=== PATIENT | male | born 1965 | race Caucasian/White ===

== ENCOUNTER 2024-04-28 05:12 | Observation (INO) | payer MEDICARE ==
[2024-04-28] MEDS ORDERED: DUONEB 0.5-3 MG/3 ml Neb IH ONE (05:22)
--- NOTE | 2024-04-28 05:26 | ERPHSYRPT ---
- History of Present Illness Source: patient Exam Limitations: no limitations Hx Tetanus, Diphtheria Vaccination/Date Given: No Hx Influenza Vaccination/Date Given: No Hx Pneumococcal Vaccination/Date Given: No <ABHISHEK EUGENE - Last Filed: 04/28/24 06:55> <ALEXANDER RUANO - Last Filed: 04/28/24 07:46> - History of Present Illness Time Seen by Provider: 04/28/24 05:16 Physician History: 58 years old male with history of hypertension, diabetes mellitus getting over the flu presented in the ER with complaints of increasing shortness of breath cough productive of yellow-green sputum copious in amount with wheezing all over. Reports subjective feeling of fever and chills. Has been taking Tylenol/ibuprofen with no significant relief. Shortness of breath gets worse with minimal exertion. (ABHISHEK EUGENE) Allergies/Adverse Reactions: NSAIDS (Non-Steroidal Anti-Inflamma Allergy (Severe, Verified 11/04/11 15:27) acetaminophen [From Vicodin] Allergy (Intermediate, Verified 11/04/11 15:27) amitriptyline [Amitriptyline] Allergy (Intermediate, Verified 11/04/11 15:27) hydrocodone bitartrate [From Vicodin] Allergy (Intermediate, Verified 11/04/11 15:27) Penicillins Allergy (Unknown, Verified 11/04/11 15:27) Home Medications: AMITRIPTYLINE HCL 50 mg Tab [AMITRIPTYLINE HCL 50 mg Tablet] 100 mg PO HS 04/28/24 [History] Glipizide [Glipizide ER] 5 mg PO BID 04/28/24 [History] HydrALAzine HCL 25 MG TAB [Apresoline 25 MG TABLET] 25 mg PO TID 04/28/24 [History] Metoprolol Succinate 100 mg [Toprol Xl 100 MG] 100 mg PO DAILY 04/28/24 [History] Pioglitazone HCl 45 mg PO DAILY 04/28/24 [History] Rosuvastatin Calcium 5 mg PO HS 04/28/24 [History] Tizanidine HCl 4 mg PO HS 04/28/24 [History] - Review of Systems Constitutional: Fever, Chills, Fatigue Eyes: No Symptoms Ears, Nose, & Throat: No Symptoms Respiratory: Cough, Dyspnea, Dyspnea on Exertion (CANDELARIA), Wheezing Cardiac: No Symptoms Abdominal/Gastrointestinal: No Symptoms Genitourinary Symptoms: No Symptoms Musculoskeletal: No Symptoms Skin: No Symptoms Neurological: No Symptoms Psychological: No Symptoms Endocrine: No Symptoms Hematologic/Lymphatic: No Symptoms Immunological/Allergic: No Symptoms <ABHISHEK EUGENE - Last Filed: 04/28/24 06:55> - Past Medical History Musculoskeletal History: Other - Past Surgical History Musculoskeletal: Orthopedic Surgery - Social History Drug Use: none <ABHISHEK EUGENE - Last Filed: 04/28/24 06:55> - Physical Exam General Appearance: no apparent distress, alert Eye Exam: PERRL/EOMI Ears, Nose, Throat Exam: hearing grossly normal Neck Exam: normal inspection, non-tender, supple, full range of motion Respiratory Exam: diminished breath sounds, accessory muscle use, rhonchi, wheezing Cardiovascular/Chest Exam: normal heart sounds, tachycardia Abdominal/Gastrointestinal Exam: soft, normal bowel sounds, No tenderness Extremity Exam: non-tender, normal range of motion Neurologic Exam: alert, oriented x 3, cooperative Skin Exam: normal color SpO2 Interpretation: normal SpO2: 93 O2 Delivery: Room Air <ABHISHEK EUGENE - Last Filed: 04/28/24 06:55> - Nursing Vital Signs Nursing Vital Signs: Initial Vital Signs Temperature 97.9 F 04/28/24 05:13 Pulse Rate 135 H 04/28/24 05:13 Respiratory Rate 26 H 04/28/24 05:13 Blood Pressure 118/76 04/28/24 05:13 O2 Sat by Pulse Oximetry 92 L 04/28/24 05:13 Pain Scale Pain Intensity 3 - Course EKG Interpreted by Me: RATE (132), Sinus Rhythm, NORMAL AXIS, NORMAL INTERVALS, Non-specific ST Changes <ABHISHEK EUGENE - Last Filed: 04/28/24 06:55> - Radiology Exams Chest X-ray Interpretation: Interpreted by me (infiltrate) <ALEXANDER RUANO - Last Filed: 04/28/24 07:46> Ordered Tests: Active Orders 24 hr Category Date Time Status Intelligence Director STAT Care 04/28/24 05:18 Active EKG-ER Only STAT Care 04/28/24 05:17 Active Oxygen-ED Only Nasal Cannula 2 lpm Care 04/28/24 05:17 Active CHEST 1 VIEW (PORTABLE) Stat Exams 04/28/24 05:18 Taken BLOOD CULTURE Stat Lab 04/28/24 06:40 Received CBC W DIFF Stat Lab 04/28/24 05:17 Completed CMP Stat Lab 04/28/24 06:40 Completed Lactic Acid Stat Lab 04/28/24 05:17 Completed MAGNESIUM Stat Lab 04/28/24 06:40 Completed NT PRO BNPII Stat Lab 04/28/24 06:40 Completed TROPONIN Q4H Lab 04/28/24 06:40 Completed TROPONIN Q4H Lab 04/28/24 09:30 Ordered TROPONIN Q4H Lab 04/28/24 13:30 Ordered Respiratory Therapy Assessment DAILY RT 04/28/24 05:33 Active Transfer Order Routine Transfer 04/28/24 Ordered Medication Summary Generic Name Dose Route Start Last Admin Trade Name Freq PRN Reason Stop Dose Admin Magnesium Sulfate/Dextrose 100 mls @ 100 mls/hr 04/28/24 07:15 04/28/24 07:33 Magnesium 1 Gm / 100 Ml D5w IV 04/28/24 09:14 100 mls/hr Q1H DORINA Administration Levofloxacin/Dextrose 500 mg in 100 mls @ 100 mls/hr 04/28/24 07:15 04/28/24 07:22 Levofloxacin 500mg/100ml D5w IV 04/28/24 08:14 100 mls/hr STAT STA Administration Discontinued Medications Generic Name Dose Route Start Last Admin Trade Name Freq PRN Reason Stop Dose Admin Albuterol/Ipratropium 3 ml 04/28/24 05:17 04/28/24 05:30 Ipratropium/Albuterol Sulfate 3 Ml Ampul.Neb IH 04/28/24 05:18 3 ml STAT ONE Administration Albuterol/Ipratropium Confirm 04/28/24 05:22 Ipratropium/Albuterol Sulfate 3 Ml Ampul.Neb Administered 04/28/24 05:23 Dose 3 ml IH .STK-MED ONE Methylprednisolone Sodium 0 mg 04/28/24 05:17 04/28/24 05:35 Succinate 125 mg/ Sterile IV 04/28/24 05:18 125 mg Water 2 ml STAT ONE Administration Levofloxacin/Dextrose Confirm 04/28/24 07:20 Levofloxacin 500mg/100ml D5w Administered 04/28/24 07:21 Dose 500 mg in 100 mls @ ud IV .STK-MED ONE Methylprednisolone Sodium Succinate Confirm 04/28/24 05:34 Methylprednis Sod Succ 125 Mg/2 Ml Vial Administered 04/28/24 05:35 Dose 125 mg .ROUTE .STK-MED ONE Sterile Water Confirm 04/28/24 05:34 Water For Injection,Sterile 10 Ml Vial Administered 04/28/24 05:35 Dose 10 ml IJ .STK-MED ONE Lab/Rad Data: Laboratory Result Diagrams 04/28/24 05:17 04/28/24 06:40 Laboratory Results 04/28/24 04/28/24 04/28/24 Range/Units 06:40 06:40 05:17 WBC (4.23-9.07) x10^3/uL RBC (4.63-6.08) x10^6/uL Hgb (13.7-17.5) g/dL Hct (40.1-51.0) % MCV (79.0-92.2) fL MCH (25.7-32.2) pg MCHC (32.3-36.5) g/dL RDW (11.6-14.4) % Plt Count (163-337) x10^3/uL MPV (9.4-12.4) fL Gran % (34.0-67.9) % Immature Gran % (Auto) (0.001-0.429) % Nucleat RBC Rel Count (0.00-0.2) % Eos # (Auto) (0.04-0.54) x10^3/uL Immature Gran # (Auto) (0.001-0.031) x10^3u/L Absolute Lymphs (auto) (1.32-3.57) x10^3/uL Absolute Monos (auto) (0.30-0.82) x10^3/uL Absolute Nucleated RBC (0.00-0.012) x10^3u/L Lymphocytes % (21.8-53.1) % Monocytes % (5.3-12.2) % Eosinophils % (0.8-7.0) % Basophils % (0.2-1.2) % Absolute Granulocytes (1.78-5.38) x10^3/uL Basophils # (0.01-0.08) x10^3/uL Sodium 134 L (135-145) mmol/L Potassium 4.3 (3.5-5.1) mmol/L Chloride 98 (98-107) mmol/L Carbon Dioxide 23 (22-30) mmol/L Anion Gap 17.4 H (5-15) MEQ/L BUN 8 L (9-20) mg/dL Creatinine 0.81 (0.66-1.25) mg/dL Estimated GFR 100.9 ML/MIN Glucose 144 H (74-106) mg/dL Lactic Acid 1.7 (0.4-2.0) Calcium 8.6 (8.4-10.2) mg/dL Magnesium 1.3 L (1.6-2.3) mg/dL Total Bilirubin 0.60 (0.2-1.3) mg/dL AST 46 (17-59) U/L ALT 35 (0-50) U/L Alkaline Phosphatase 109 (38-126) U/L Troponin I < 0.012 (0.000-0.033) ng/mL NT-Pro-B Natriuret Pep 391 (<300) pg/mL Serum Total Protein 6.6 (6.3-8.2) g/dL Albumin 3.4 L (3.5-5.0) g/dL 04/28/24 Range/Units 05:17 WBC 8.6 (4.23-9.07) x10^3/uL RBC 4.28 L (4.63-6.08) x10^6/uL Hgb 12.7 L (13.7-17.5) g/dL Hct 38.3 L (40.1-51.0) % MCV 89.5 (79.0-92.2) fL MCH 29.7 (25.7-32.2) pg MCHC 33.2 (32.3-36.5) g/dL RDW 13.8 (11.6-14.4) % Plt Count 280 (163-337) x10^3/uL MPV 9.0 L (9.4-12.4) fL Gran % 74.6 H (34.0-67.9) % Immature Gran % (Auto) 0.9 H (0.001-0.429) % Nucleat RBC Rel Count 0.0 (0.00-0.2) % Eos # (Auto) 0.45 (0.04-0.54) x10^3/uL Immature Gran # (Auto) 0.08 H (0.001-0.031) x10^3u/L Absolute Lymphs (auto) 0.88 L (1.32-3.57) x10^3/uL Absolute Monos (auto) 0.74 (0.30-0.82) x10^3/uL Absolute Nucleated RBC 0.00 (0.00-0.012) x10^3u/L Lymphocytes % 10.2 L (21.8-53.1) % Monocytes % 8.6 (5.3-12.2) % Eosinophils % 5.2 (0.8-7.0) % Basophils % 0.5 (0.2-1.2) % Absolute Granulocytes 6.40 H (1.78-5.38) x10^3/uL Basophils # 0.04 (0.01-0.08) x10^3/uL Sodium (135-145) mmol/L Potassium (3.5-5.1) mmol/L Chloride (98-107) mmol/L Carbon Dioxide (22-30) mmol/L Anion Gap (5-15) MEQ/L BUN (9-20) mg/dL Creatinine (0.66-1.25) mg/dL Estimated GFR ML/MIN Glucose (74-106) mg/dL Lactic Acid (0.4-2.0) Calcium (8.4-10.2) mg/dL Magnesium (1.6-2.3) mg/dL Total Bilirubin (0.2-1.3) mg/dL AST (17-59) U/L ALT (0-50) U/L Alkaline Phosphatase (38-126) U/L Troponin I (0.000-0.033) ng/mL NT-Pro-B Natriuret Pep (<300) pg/mL Serum Total Protein (6.3-8.2) g/dL Albumin (3.5-5.0) g/dL - Progress Progress: improved Air Movement: fair Blood Culture(s) Obtained: Yes Counseled pt/family regarding: lab results, diagnosis, need for follow-up, rad results <ABHISHEK EUGENE - Last Filed: 04/28/24 06:55> <ALEXANDER RUANO - Last Filed: 04/28/24 07:46> - Progress Progress Note: 04/28/24 06:55 58-year-old is evaluated for increasing cough and difficulty breathing. Patient is tachypneic and tachycardic, mild distress, oxygen saturation in mid to upper 80s, placed on 2 L oxygen, given DuoNeb and Solu-Medrol, feeling better on reevaluation. EKG is sinus tach with no acute ST elevation Chest x-ray showed bilateral airspace opacities reviewed by me, official report is pending, Has normal lactate, rest of workup is pending, care is transferred to Dr. Ruano at end of my shift for reevaluation and final disposition. (ABHISHEK EUGENE) Patient endorsed to Dr. Ruano at approximately 7 AM. Patient reassessed he is resting comfortably. Oxygen nasal cannula in place. Patient normally does not require oxygen. Patient will be admitted for further evaluation of hypoxia tachycardia hypomagnesemia pneumonia and a productive cough. Plan of care discussed with patient. He agrees to admission at [facility] for further evaluation and treatment. Case discussed with hospitalist Dr. Shaw excepts admission to observation at 7:27 AM. Complexity of problem addressed is moderate acute complicated no critical care time. Complex of data reviewed and analyzed is extensive. Test ordered test reviewed results analyzed and correlated clinically with history and physical exam. Management discussed with hospitalist will except admission to observation. Risk of complication and or risk of morbidity/mortality of patient management is high. Patient requires hospitalization for further evaluation and treatment. Vital stable. Time spent to admit patient is approximately 15 minutes. Plan of care established for shared decision making. No social determinants of health present to impede follow-up. Portions of this note were created with voice recognition technology. There may be grammatical, spelling, punctuation or sound alike errors 04/28/24 07:44 (ALEXANDER RUANO) Medical Desision Making - Diagnostic Testing Diagnostic test were ordered, analyzed, and reviewed by me: Yes Radiological Interpretation: Interpreted by me, Reviewed by me <ABHISHEK EUGENE - Last Filed: 04/28/24 06:55> <ABHISHEK EUGENE - Last Filed: 04/28/24 06:55> - Departure Departure Disposition: Observation Critical Care Time: No <ALEXANDER RUANO - Last Filed: 04/28/24 07:46> - Departure Clinical Impression: Tachycardia, Hypoxia, Hypomagnesemia, Pneumonia, Productive cough, Influenza A Condition: Stable Referrals: RYAN BANKS [Primary Care Provider] - Follow up/PCP as directed
[2024-04-28] MEDS: DUONEB 0.5-3 MG/3 ml Neb IH ONE (05:30)
[2024-04-28] MEDS ORDERED: solu-MEDROL ONE (05:34)
[2024-04-28] MEDS ORDERED: Sterile H2O 10 ml IJ ONE (05:34)
[2024-04-28] MEDS: solu-MEDROL 125 MG, Sterile H2O 10 ml 2 ML IV ONE (05:35)
[2024-04-28 06:46] LABS: BASOPHIL % 0.5 % (0.2-1.2); Basophil (Absolute #) 0.04 x10^3/uL (0.01-0.08); Eosinophil % 5.2 % (0.8-7.0); Eosinophil (Absolute #) 0.45 x10^3/uL (0.04-0.54); Hematocrit 38.3 % (40.1-51.0); Hemoglobin 12.7 g/dL (13.7-17.5); IMMATURE GRAN # 0.08 x10^3u/L (0.001-0.031); IMMATURE GRAN % 0.9 % (0.001-0.429); Lymphocyte (Absolute #) 0.88 x10^3/uL (1.32-3.57); Lymphocytes % 10.2 % (21.8-53.1); Mean Cell Volume 89.5 fL (79.0-92.2); Mean Corpuscular Hemoglobin 29.7 pg (25.7-32.2); Mean Corpuscular Hgb Concent. 33.2 g/dL (32.3-36.5); Monocyte (Absolute #) 0.74 x10^3/uL (0.30-0.82); Monocytes % 8.6 % (5.3-12.2); Neutrophil % 74.6 % (34.0-67.9); Platelet Count 280 x10^3/uL (163-337); Red Blood Count 4.28 x10^6/uL (4.63-6.08); Red Cell Distribution Width 13.8 % (11.6-14.4); White Blood Count 8.6 x10^3/uL (4.23-9.07)
[2024-04-28 06:56] LABS: ALBUMIN 3.4 g/dL (3.5-5.0); ANION GAP 17.4 MEQ/L (5-15); BILIRUBIN,TOTAL 0.6 mg/dL (0.2-1.3); Calcium 8.6 mg/dL (8.4-10.2); Creatinine 1 0.81 mg/dL (0.66-1.25); EST GLOMERULAR FILTRATION RATE 100.9 ML/MIN; MAGNESIUM 1.3 mg/dL (1.6-2.3); Potassium 4.3 mmol/L (3.5-5.1); Total Protein 6.6 g/dL (6.3-8.2)
[2024-04-28 07:06] LABS: NT PRO BNPII 391 pg/mL (<300); TROPONIN < 0.012 ng/mL (0.000-0.033)
[2024-04-28] MEDS ORDERED: Levofloxacin 500MG/100ML D5W 500 MG/100 ML BAG IV ONE (07:20)
[2024-04-28] MEDS: Levofloxacin 500MG/100ML D5W 500 MG/100 ML BAG IV STA (07:22)
[2024-04-28] MEDS: Magnesium 1 Gm / 100 Ml D5W*** 100 ML IV SCH (07:22)
[2024-04-28 08:29] LABS: INFLUENZA A NEGATIVE (NEGATIVE); INFLUENZA B NEGATIVE (NEGATIVE); RESPIRATORY SYNCTIAL VIRUS NEGATIVE (NEGATIVE); SARS-CoV-2 Xpert Express NEGATIVE (NEGATIVE)
--- NOTE | 2024-04-28 09:03 | PCM.HP ---
History of Present Illness - Chief Complaint Chief Complaint: FluA/pneuomonia Date: 04/28/24 History of Present Illness: is a 58 year old male with a pmhx of DMII and hypertension who presented to ED 04/28/24 with complaints of progressive shortness of breath, fever, and productive cough (green sputum). Patient reports he was diagnosed with FluA around the first week of April and was out of the window for Tamiflu. He has been treating symptoms at home and felt like he was getting better but over the past few days he has been having fevers/chills with TMax 101.8 and progressive shortness of breath and wheezing. This morning he was unable to ambulate without severe dyspnea which prompted him to come to ED. Denies abdominal pain, GONZALES, dizziness, N/V/D. Spouse has also been diagnosed with FluA. Upon arrival to ED, patient hypoxic, tachycardic and tachypneic. EKG sinus tach with no acute ischemia. Lab findings remarkable for Gap acidosis and hypomagnesemia. Respiratory panel negative for flu/covid/rsv. CXR pending. Patient has been placed on 2L oxygen and provided levaquin, solumedrol, duonebs, and magnesium replacement in ED. Symptoms have improved some. Admit patient for acute respiratory failure secondary to fluA/pneumonia. Plan for ceftr iaxone/azith, solumedrol, nebs, supportive care. - Review of Systems Constitutional: Fever, Chills, Weakness Eyes: No Symptoms Ears, Nose, & Throat: Nose Congestion Respiratory: Cough, Short Of Breath, Wheezing Cardiac: No Symptoms Abdominal/Gastrointestinal: No Symptoms Genitourinary Symptoms: No Symptoms Musculoskeletal: No Symptoms Skin: No Symptoms Neurological: No Symptoms Psychological: No Symptoms Endocrine: No Symptoms Hematologic/Lymphatic: No Symptoms Immunological/Allergic: No Symptoms Medications & Allergies Home Medications: Home Medication List AMITRIPTYLINE HCL 50 mg Tab [AMITRIPTYLINE HCL 50 mg Tablet] 100 mg PO HS 04/28/24 [History Confirmed 04/28/24] Glipizide [Glipizide ER] 5 mg PO BID 04/28/24 [History Confirmed 04/28/24] HydrALAzine HCL 25 MG TAB [Apresoline 25 MG TABLET] 25 mg PO TID 04/28/24 [History Confirmed 04/28/24] Metoprolol Succinate 100 mg [Toprol Xl 100 MG] 100 mg PO DAILY 04/28/24 [History Confirmed 04/28/24] Pioglitazone HCl 45 mg PO DAILY 04/28/24 [History Confirmed 04/28/24] Rosuvastatin Calcium 5 mg PO HS 04/28/24 [History Confirmed 04/28/24] Tizanidine HCl 4 mg PO HS 04/28/24 [History Confirmed 04/28/24] Allergies/Adverse Reactions: Allergies Allergy/AdvReac Type Severity Reaction Status Date / Time NSAIDS (Non-Steroidal Allergy Severe Verified 11/04/11 15:27 Anti-Inflamma acetaminophen [From Vicodin] Allergy Intermediate Verified 11/04/11 15:27 amitriptyline [Amitriptyline] Allergy Intermediate Verified 11/04/11 15:27 hydrocodone bitartrate Allergy Intermediate Verified 11/04/11 15:27 [From Vicodin] Penicillins Allergy Unknown Verified 11/04/11 15:27 - Past Medical History Past Medical History: Yes ENT History: No Pertinent History Cardiac History: Hypertension Respiratory History: No Pertinent History Endocrine Medical History: Diabetes Type II Musculoskelatal History: Other GI Medical History: No Pertinent History History: No Pertinent History Pyscho-Social History: No Pertinent History Male Reproductive Disorders: No Pertinent History Comment: "CHRONIC NECK PAIN" - Past Surgical History Past Surgical History: Yes Musculskeletal Surgical Hx: Orthopedic Surgery Other Surgical History: NECK SURGERY Significant Family History: heart disease - Social History Smoking Status: Light tobacco smoker How long have you smoked: "YEARS" Exposure to second hand smoke: No Alcohol: None Drug Use: none - Social Determinants of Health Will the patient participate in the screening: Declined to provide - Physical Exam Vital Signs: Vital Signs - 24 hr Temp Pulse Resp BP BP Pulse Ox 04/28/24 08:30 146/76 04/28/24 08:00 105 H 22 149/82 04/28/24 07:31 109 H 25 H 144/90 95 04/28/24 07:00 105 H 30 H 126/78 94 L 04/28/24 06:56 93 L 04/28/24 06:30 109 H 21 134/63 95 04/28/24 06:00 117 H 26 H 131/88 91 L 04/28/24 05:49 115 H 24 93 L 04/28/24 05:30 118 H 36 H 113/79 93 L 04/28/24 05:13 97.9 F 135 H 24 118/76 31 L General Appearance: no apparent distress Neurologic Exam: alert, oriented x 3, cooperative Eye Exam: PERRL/EOMI Ears, Nose, Throat Exam: normal ENT inspection Neck Exam: normal inspection Respiratory Exam: crackles/rales, wheezing Gastrointestinal/Abdomen Exam: soft, normal bowel sounds Rectal Exam: deferred Back Exam: normal inspection Extremity Exam: normal inspection Skin Exam: normal color Results - Labs Lab/Micro Results: Lab Results-Last 24 Hours 04/28/24 04/28/24 04/28/24 Range/Units 05:17 05:17 06:40 WBC 8.6 (4.23-9.07) x10^3/uL RBC 4.28 L (4.63-6.08) x10^6/uL Hgb 12.7 L (13.7-17.5) g/dL Hct 38.3 L (40.1-51.0) % MCV 89.5 (79.0-92.2) fL MCH 29.7 (25.7-32.2) pg MCHC 33.2 (32.3-36.5) g/dL RDW 13.8 (11.6-14.4) % Plt Count 280 (163-337) x10^3/uL MPV 9.0 L (9.4-12.4) fL Gran % 74.6 H (34.0-67.9) % Immature Gran % (Auto) 0.9 H (0.001-0.429) % Nucleat RBC Rel Count 0.0 (0.00-0.2) % Eos # (Auto) 0.45 (0.04-0.54) x10^3/uL Immature Gran # (Auto) 0.08 H (0.001-0.031) x10^3u/L Absolute Lymphs (auto) 0.88 L (1.32-3.57) x10^3/uL Absolute Monos (auto) 0.74 (0.30-0.82) x10^3/uL Absolute Nucleated RBC 0.00 (0.00-0.012) x10^3u/L Lymphocytes % 10.2 L (21.8-53.1) % Monocytes % 8.6 (5.3-12.2) % Eosinophils % 5.2 (0.8-7.0) % Basophils % 0.5 (0.2-1.2) % Absolute Granulocytes 6.40 H (1.78-5.38) x10^3/uL Basophils # 0.04 (0.01-0.08) x10^3/uL Sodium 134 L (135-145) mmol/L Potassium 4.3 (3.5-5.1) mmol/L Chloride 98 (98-107) mmol/L Carbon Dioxide 23 (22-30) mmol/L Anion Gap 17.4 H (5-15) MEQ/L BUN 8 L (9-20) mg/dL Creatinine 0.81 (0.66-1.25) mg/dL Estimated GFR 100.9 ML/MIN Glucose 144 H (74-106) mg/dL Lactic Acid 1.7 (0.4-2.0) Calcium 8.6 (8.4-10.2) mg/dL Magnesium 1.3 L (1.6-2.3) mg/dL Total Bilirubin 0.60 (0.2-1.3) mg/dL AST 46 (17-59) U/L ALT 35 (0-50) U/L Alkaline Phosphatase 109 (38-126) U/L Troponin I (0.000-0.033) ng/mL NT-Pro-B Natriuret Pep (<300) pg/mL Serum Total Protein 6.6 (6.3-8.2) g/dL Albumin 3.4 L (3.5-5.0) g/dL Influenza Type A Ag (NEGATIVE) Influenza Type B Ag (NEGATIVE) RSV (PCR) (NEGATIVE) SARS-CoV-2 (PCR) (NEGATIVE) 04/28/24 04/28/24 Range/Units 06:40 07:51 WBC (4.23-9.07) x10^3/uL RBC (4.63-6.08) x10^6/uL Hgb (13.7-17.5) g/dL Hct (40.1-51.0) % MCV (79.0-92.2) fL MCH (25.7-32.2) pg MCHC (32.3-36.5) g/dL RDW (11.6-14.4) % Plt Count (163-337) x10^3/uL MPV (9.4-12.4) fL Gran % (34.0-67.9) % Immature Gran % (Auto) (0.001-0.429) % Nucleat RBC Rel Count (0.00-0.2) % Eos # (Auto) (0.04-0.54) x10^3/uL Immature Gran # (Auto) (0.001-0.031) x10^3u/L Absolute Lymphs (auto) (1.32-3.57) x10^3/uL Absolute Monos (auto) (0.30-0.82) x10^3/uL Absolute Nucleated RBC (0.00-0.012) x10^3u/L Lymphocytes % (21.8-53.1) % Monocytes % (5.3-12.2) % Eosinophils % (0.8-7.0) % Basophils % (0.2-1.2) % Absolute Granulocytes (1.78-5.38) x10^3/uL Basophils # (0.01-0.08) x10^3/uL Sodium (135-145) mmol/L Potassium (3.5-5.1) mmol/L Chloride (98-107) mmol/L Carbon Dioxide (22-30) mmol/L Anion Gap (5-15) MEQ/L BUN (9-20) mg/dL Creatinine (0.66-1.25) mg/dL Estimated GFR ML/MIN Glucose (74-106) mg/dL Lactic Acid (0.4-2.0) Calcium (8.4-10.2) mg/dL Magnesium (1.6-2.3) mg/dL Total Bilirubin (0.2-1.3) mg/dL AST (17-59) U/L ALT (0-50) U/L Alkaline Phosphatase (38-126) U/L Troponin I < 0.012 (0.000-0.033) ng/mL NT-Pro-B Natriuret Pep 391 (<300) pg/mL Serum Total Protein (6.3-8.2) g/dL Albumin (3.5-5.0) g/dL Influenza Type A Ag NEGATIVE (NEGATIVE) Influenza Type B Ag NEGATIVE (NEGATIVE) RSV (PCR) NEGATIVE (NEGATIVE) SARS-CoV-2 (PCR) NEGATIVE (NEGATIVE) - Radiology Impressions Radiology Exams & Impressions: Radiology Procedures Category Date Time Status CHEST 1 VIEW (PORTABLE) Stat Exams 04/28/24 05:18 Taken - Other Procedures and Tests Respiratory Therapy 04/28/24 05:33 Respiratory Therapy Assessment DAILY Assessment/Plan (1) Acute respiratory failure with hypoxia Current Visit: Yes Status: Acute Assessment & Plan: -Secondary to fluA/pneumonia -CXR pending radiology read -out of window for Tamiflu -Levaquin given in ED - continue with Ceftriaxone/Azithromycin -Solumedrol 40mg BID -+IS -RT eval and follow -Nebs/INH -Supplemental oxygen with goal spo2 > 91% -initiate droplet precautions -Supportive care with anti-pyretics/anti-emetics Code(s): J96.01 - ACUTE RESPIRATORY FAILURE WITH HYPOXIA (2) Pneumonia Current Visit: Yes Status: Acute Assessment & Plan: -see ARF Code(s): J18.9 - PNEUMONIA, UNSPECIFIED ORGANISM (3) Influenza A Current Visit: Yes Status: Acute Assessment & Plan: -See ARF Code(s): J10.1 - FLU DUE TO OTH IDENT INFLUENZA VIRUS W OTH RESP MANIFEST (4) Hypomagnesemia Current Visit: Yes Status: Acute Assessment & Plan: -Magnesium level reviewed at 1.3 - received 2g in ED -Recheck in a.m. Code(s): E83.42 - HYPOMAGNESEMIA (5) HTN (hypertension) Current Visit: Yes Status: Acute Assessment & Plan: -stable - continue home meds Code(s): I10 - ESSENTIAL (PRIMARY) HYPERTENSION (6) Type 2 diabetes mellitus Current Visit: Yes Status: Acute Assessment & Plan: -A1c -SSI moderate dose for now - may need adjustment with steroids -ADA diet VTE: Lovenox PPI: protonix Dispo: 1-2 days
--- NOTE | 2024-04-28 09:07 | XRAY ---
Indication: Short of breath. Comparison: None Portable chest demonstrates left mid to lower lung interstitial alveolar opacities without consolidation/large effusion. Elsewhere prominent interstitial lung markings and right upper lobe calcified granuloma. Heart not enlarged. Bony thorax intact with osteopenia and mild degenerative changes.
[2024-04-28] MEDS ORDERED: Nicoderm CQ 21 MG TOP PRN (09:10)
[2024-04-28] MEDS ORDERED: TYLENOL 325 MG PO PRN (09:10)
[2024-04-28] MEDS ORDERED: Zofran 4 MG/2 ML VIAL IV PRN (09:10)
[2024-04-28] MEDS ORDERED: Zithromax 500 MG/ 250 ML NaCl Premix 500 MG/250 ML IVPB IV SCH (10:00)
[2024-04-28] MEDS: DUONEB 0.5-3 MG/3 ml Neb IH SCH (11:44)
[2024-04-28] MEDS: NORCO 10-325 MG PO PRN (12:04)
[2024-04-28] MEDS: Actos 30 MG PO SCH (12:05)
[2024-04-28] MEDS: Toprol Xl 100 MG PO SCH (12:06)
[2024-04-28] MEDS: PROTONIX 40 MG IV IV SCH (12:06)
[2024-04-28] MEDS: HUMALOG SQ PRN ×2 (12:07→22:02)
[2024-04-28] MEDS: ENOXAPARIN SODIUM SQ SCH (12:20)
[2024-04-28] MEDS: Apresoline 25 MG TABLET PO SCH (15:49)
[2024-04-28] MEDS: solu-MEDROL 40 MG, Sterile H2O 10 ml 1 ML IV SCH (22:02)
[2024-04-28] MEDS: Zocor 10MG PO SCH (22:02)
[2024-04-28] MEDS: Zanaflex 4 MG PO SCH (22:02)
--- NOTE | 2024-04-29 05:14 | PCM.NOTE ---
Date and Time: 04/29/24 0513 Subjective Assessment: is a 58 year old male with a pmhx of DMII and hypertension who presented to ED 04/28/24 with complaints of progressive shortness of breath, fever, and productive cough (green sputum). Patient reports he was diagnosed with FluA around the first week of April and was out of the window for Tamifl u. He has been treating symptoms at home and felt like he was getting better but over the past few days he has been having fevers/chills with TMax 101.8 and progressive shortness of breath and wheezing. This morning he was unable to ambulate without severe dyspnea which prompted him to come to ED. Denies abdominal pain, GONZALES, dizziness, N/V/D. Spouse has also been diagnosed with FluA. Upon arrival to ED, patient hypoxic, tachycardic and tachypneic. EKG sinus tach with no acute ischemia. Lab findings remarkable for Gap acidosis and hypomagnesemia. Respiratory panel negative for flu/covid/rsv. CXR pending. Patient has been placed on 2L oxygen and provided levaquin, solumedrol, duonebs, and magnesium replacement in ED. Symptoms have improved some. Admit patient for acute respiratory failure secondary to fluA/pneumonia. Plan for ceftriaxone/azith, solumedrol, nebs, supportive care. 04/29/24: No overnight events noted. Patient endorses dyspnea and cough have improved some. Now at 1.5L oxygen. Cough is now [employer]. Will add Mucinex and flutter. Will continue steroids and abx. Pending treatment response possible discharge tomorrow. - Review of Systems Constitutional: No Symptoms Eyes: No Symptoms Ears, Nose, & Throat: No Symptoms Respiratory: Cough, Short Of Breath, Wheezing Cardiac: No Symptoms Abdominal/Gastrointestinal: No Symptoms Genitourinary Symptoms: No Symptoms Musculoskeletal: No Symptoms Skin: No Symptoms Neurological: No Symptoms Psychological: No Symptoms Endocrine: No Symptoms Hematologic/Lymphatic: No Symptoms Immunological/Allergic: No Symptoms Objective Exam General Appearance: no apparent distress Neurologic Exam: alert, oriented x 3, cooperative Skin Exam: normal color Eye Exam: PERRL Ears, Nose, Throat Exam: normal ENT inspection Neck Exam: normal inspection Respiratory Exam: crackles/rales, wheezing Cardiovascular Exam: regular rate/rhythm, normal heart sounds Gastrointestinal/Abdomen Exam: soft Extremity Exam: normal inspection Back Exam: normal inspection Male Genitalia Exam: deferred Rectal Exam: deferred Objective Data Vital Signs: Vital Signs - 24 hr Temp Pulse Resp BP BP Pulse Ox 04/29/24 04:00 97.2 F 76 20 133/65 96 04/29/24 02:00 18 04/29/24 00:56 84 16 97 04/29/24 00:00 96.9 F 88 22 162/69 94 L 04/28/24 22:00 20 04/28/24 20:00 97.5 F 96 H 22 133/70 97 04/28/24 18:00 16 04/28/24 16:50 86 16 95 04/28/24 16:00 86 16 141/71 95 04/28/24 14:35 16 04/28/24 12:00 99.2 F 116 H 20 120/63 94 L 04/28/24 11:46 107 H 16 94 L 04/28/24 10:35 16 04/28/24 09:28 112 H 20 95 04/28/24 09:03 98.2 F 116 H 20 131/80 93 L 04/28/24 09:00 93 L 04/28/24 08:30 146/76 04/28/24 08:00 105 H 22 149/82 04/28/24 07:31 109 H 25 H 144/90 95 04/28/24 07:00 105 H 30 H 126/78 94 L 04/28/24 06:56 93 L 04/28/24 06:30 109 H 21 134/63 95 04/28/24 06:00 117 H 26 H 131/88 91 L 04/28/24 05:49 115 H 24 93 L 04/28/24 05:30 118 H 36 H 113/79 93 L Pain Assessment - Last Documented Pain Intensity 0 Pain Scale Used 0-10 Pain Scale Intake and Output: Intake & Output 04/26/24 04/27/24 04/28/24 04/29/24 11:59 11:59 11:59 11:59 Intake Total 360 850 Output Total 2850 Balance 360 -2000 Weight 84.8 kg Lab Results: Lab Results-Last 24 Hours 04/28/24 04/28/24 04/28/24 Range/Units 05:17 05:17 05:17 WBC 8.6 (4.23-9.07) x10^3/uL RBC 4.28 L (4.63-6.08) x10^6/uL Hgb 12.7 L (13.7-17.5) g/dL Hct 38.3 L (40.1-51.0) % MCV 89.5 (79.0-92.2) fL MCH 29.7 (25.7-32.2) pg MCHC 33.2 (32.3-36.5) g/dL RDW 13.8 (11.6-14.4) % Plt Count 280 (163-337) x10^3/uL MPV 9.0 L (9.4-12.4) fL Gran % 74.6 H (34.0-67.9) % Immature Gran % (Auto) 0.9 H (0.001-0.429) % Nucleat RBC Rel Count 0.0 (0.00-0.2) % Eos # (Auto) 0.45 (0.04-0.54) x10^3/uL Immature Gran # (Auto) 0.08 H (0.001-0.031) x10^3u/L Absolute Lymphs (auto) 0.88 L (1.32-3.57) x10^3/uL Absolute Monos (auto) 0.74 (0.30-0.82) x10^3/uL Absolute Nucleated RBC 0.00 (0.00-0.012) x10^3u/L Lymphocytes % 10.2 L (21.8-53.1) % Monocytes % 8.6 (5.3-12.2) % Eosinophils % 5.2 (0.8-7.0) % Basophils % 0.5 (0.2-1.2) % Absolute Granulocytes 6.40 H (1.78-5.38) x10^3/uL Basophils # 0.04 (0.01-0.08) x10^3/uL Sodium (135-145) mmol/L Potassium (3.5-5.1) mmol/L Chloride (98-107) mmol/L Carbon Dioxide (22-30) mmol/L Anion Gap (5-15) MEQ/L BUN (9-20) mg/dL Creatinine (0.66-1.25) mg/dL Estimated GFR ML/MIN Glucose (74-106) mg/dL POC Glucometer (74 to 106) mg/dL Hemoglobin A1c 5.89 (4.5-6.0) % Lactic Acid 1.7 (0.4-2.0) Calcium (8.4-10.2) mg/dL Magnesium (1.6-2.3) mg/dL Total Bilirubin (0.2-1.3) mg/dL AST (17-59) U/L ALT (0-50) U/L Alkaline Phosphatase (38-126) U/L Troponin I (0.000-0.033) ng/mL NT-Pro-B Natriuret Pep (<300) pg/mL Serum Total Protein (6.3-8.2) g/dL Albumin (3.5-5.0) g/dL Influenza Type A Ag (NEGATIVE) Influenza Type B Ag (NEGATIVE) RSV (PCR) (NEGATIVE) SARS-CoV-2 (PCR) (NEGATIVE) 04/28/24 04/28/24 04/28/24 Range/Units 06:40 06:40 07:51 WBC (4.23-9.07) x10^3/uL RBC (4.63-6.08) x10^6/uL Hgb (13.7-17.5) g/dL Hct (40.1-51.0) % MCV (79.0-92.2) fL MCH (25.7-32.2) pg MCHC (32.3-36.5) g/dL RDW (11.6-14.4) % Plt Count (163-337) x10^3/uL MPV (9.4-12.4) fL Gran % (34.0-67.9) % Immature Gran % (Auto) (0.001-0.429) % Nucleat RBC Rel Count (0.00-0.2) % Eos # (Auto) (0.04-0.54) x10^3/uL Immature Gran # (Auto) (0.001-0.031) x10^3u/L Absolute Lymphs (auto) (1.32-3.57) x10^3/uL Absolute Monos (auto) (0.30-0.82) x10^3/uL Absolute Nucleated RBC (0.00-0.012) x10^3u/L Lymphocytes % (21.8-53.1) % Monocytes % (5.3-12.2) % Eosinophils % (0.8-7.0) % Basophils % (0.2-1.2) % Absolute Granulocytes (1.78-5.38) x10^3/uL Basophils # (0.01-0.08) x10^3/uL Sodium 134 L (135-145) mmol/L Potassium 4.3 (3.5-5.1) mmol/L Chloride 98 (98-107) mmol/L Carbon Dioxide 23 (22-30) mmol/L Anion Gap 17.4 H (5-15) MEQ/L BUN 8 L (9-20) mg/dL Creatinine 0.81 (0.66-1.25) mg/dL Estimated GFR 100.9 ML/MIN Glucose 144 H (74-106) mg/dL POC Glucometer (74 to 106) mg/dL Hemoglobin A1c (4.5-6.0) % Lactic Acid (0.4-2.0) Calcium 8.6 (8.4-10.2) mg/dL Magnesium 1.3 L (1.6-2.3) mg/dL Total Bilirubin 0.60 (0.2-1.3) mg/dL AST 46 (17-59) U/L ALT 35 (0-50) U/L Alkaline Phosphatase 109 (38-126) U/L Troponin I < 0.012 (0.000-0.033) ng/mL NT-Pro-B Natriuret Pep 391 (<300) pg/mL Serum Total Protein 6.6 (6.3-8.2) g/dL Albumin 3.4 L (3.5-5.0) g/dL Influenza Type A Ag NEGATIVE (NEGATIVE) Influenza Type B Ag NEGATIVE (NEGATIVE) RSV (PCR) NEGATIVE (NEGATIVE) SARS-CoV-2 (PCR) NEGATIVE (NEGATIVE) 04/28/24 04/28/24 04/28/24 Range/Units 09:45 12:00 13:40 WBC (4.23-9.07) x10^3/uL RBC (4.63-6.08) x10^6/uL Hgb (13.7-17.5) g/dL Hct (40.1-51.0) % MCV (79.0-92.2) fL MCH (25.7-32.2) pg MCHC (32.3-36.5) g/dL RDW (11.6-14.4) % Plt Count (163-337) x10^3/uL MPV (9.4-12.4) fL Gran % (34.0-67.9) % Immature Gran % (Auto) (0.001-0.429) % Nucleat RBC Rel Count (0.00-0.2) % Eos # (Auto) (0.04-0.54) x10^3/uL Immature Gran # (Auto) (0.001-0.031) x10^3u/L Absolute Lymphs (auto) (1.32-3.57) x10^3/uL Absolute Monos (auto) (0.30-0.82) x10^3/uL Absolute Nucleated RBC (0.00-0.012) x10^3u/L Lymphocytes % (21.8-53.1) % Monocytes % (5.3-12.2) % Eosinophils % (0.8-7.0) % Basophils % (0.2-1.2) % Absolute Granulocytes (1.78-5.38) x10^3/uL Basophils # (0.01-0.08) x10^3/uL Sodium (135-145) mmol/L Potassium (3.5-5.1) mmol/L Chloride (98-107) mmol/L Carbon Dioxide (22-30) mmol/L Anion Gap (5-15) MEQ/L BUN (9-20) mg/dL Creatinine (0.66-1.25) mg/dL Estimated GFR ML/MIN Glucose (74-106) mg/dL POC Glucometer 217 H (74 to 106) mg/dL Hemoglobin A1c (4.5-6.0) % Lactic Acid (0.4-2.0) Calcium (8.4-10.2) mg/dL Magnesium (1.6-2.3) mg/dL Total Bilirubin (0.2-1.3) mg/dL AST (17-59) U/L ALT (0-50) U/L Alkaline Phosphatase (38-126) U/L Troponin I < 0.012 < 0.012 (0.000-0.033) ng/mL NT-Pro-B Natriuret Pep (<300) pg/mL Serum Total Protein (6.3-8.2) g/dL Albumin (3.5-5.0) g/dL Influenza Type A Ag (NEGATIVE) Influenza Type B Ag (NEGATIVE) RSV (PCR) (NEGATIVE) SARS-CoV-2 (PCR) (NEGATIVE) 04/28/24 04/28/24 Range/Units 16:19 21:00 WBC (4.23-9.07) x10^3/uL RBC (4.63-6.08) x10^6/uL Hgb (13.7-17.5) g/dL Hct (40.1-51.0) % MCV (79.0-92.2) fL MCH (25.7-32.2) pg MCHC (32.3-36.5) g/dL RDW (11.6-14.4) % Plt Count (163-337) x10^3/uL MPV (9.4-12.4) fL Gran % (34.0-67.9) % Immature Gran % (Auto) (0.001-0.429) % Nucleat RBC Rel Count (0.00-0.2) % Eos # (Auto) (0.04-0.54) x10^3/uL Immature Gran # (Auto) (0.001-0.031) x10^3u/L Absolute Lymphs (auto) (1.32-3.57) x10^3/uL Absolute Monos (auto) (0.30-0.82) x10^3/uL Absolute Nucleated RBC (0.00-0.012) x10^3u/L Lymphocytes % (21.8-53.1) % Monocytes % (5.3-12.2) % Eosinophils % (0.8-7.0) % Basophils % (0.2-1.2) % Absolute Granulocytes (1.78-5.38) x10^3/uL Basophils # (0.01-0.08) x10^3/uL Sodium (135-145) mmol/L Potassium (3.5-5.1) mmol/L Chloride (98-107) mmol/L Carbon Dioxide (22-30) mmol/L Anion Gap (5-15) MEQ/L BUN (9-20) mg/dL Creatinine (0.66-1.25) mg/dL Estimated GFR ML/MIN Glucose (74-106) mg/dL POC Glucometer 302 H 247 H (74 to 106) mg/dL Hemoglobin A1c (4.5-6.0) % Lactic Acid (0.4-2.0) Calcium (8.4-10.2) mg/dL Magnesium (1.6-2.3) mg/dL Total Bilirubin (0.2-1.3) mg/dL AST (17-59) U/L ALT (0-50) U/L Alkaline Phosphatase (38-126) U/L Troponin I (0.000-0.033) ng/mL NT-Pro-B Natriuret Pep (<300) pg/mL Serum Total Protein (6.3-8.2) g/dL Albumin (3.5-5.0) g/dL Influenza Type A Ag (NEGATIVE) Influenza Type B Ag (NEGATIVE) RSV (PCR) (NEGATIVE) SARS-CoV-2 (PCR) (NEGATIVE) Radiology Exams: Radiology Procedures Category Date Time Status CHEST 1 VIEW (PORTABLE) Stat Exams 04/28/24 05:18 Completed Assessment/Plan (1) Acute respiratory failure with hypoxia Current Visit: Yes Status: Acute Assessment & Plan: -Secondary to fluA/pneumonia -CXR pending radiology read -out of window for Tamiflu -Levaquin given in ED - continue with Ceftriaxone/Azithromycin -Solumedrol 40mg BID -+IS -RT eval and follow -Nebs/INH -Supplemental oxygen with goal spo2 > 91% -initiate droplet precautions -Supportive care with anti-pyretics/anti-emetics 04/29: -continue steroid/abx -Oxygen now at 1.5L - wean as appropriate Code(s): J96.01 - ACUTE RESPIRATORY FAILURE WITH HYPOXIA (2) Pneumonia Current Visit: Yes Status: Acute Assessment & Plan: -see ARF Code(s): J18.9 - PNEUMONIA, UNSPECIFIED ORGANISM (3) Influenza A Current Visit: Yes Status: Acute Assessment & Plan: -See ARF Code(s): J10.1 - FLU DUE TO OTH IDENT INFLUENZA VIRUS W OTH RESP MANIFEST (4) Hypomagnesemia Current Visit: Yes Status: Acute Assessment & Plan: -Magnesium level reviewed at 1.3 - received 2g in ED -Recheck in a.m. Code(s): E83.42 - HYPOMAGNESEMIA (5) HTN (hypertension) Current Visit: Yes Status: Acute Assessment & Plan: -stable - continue home meds Code(s): I10 - ESSENTIAL (PRIMARY) HYPERTENSION (6) Type 2 diabetes mellitus Current Visit: Yes Status: Acute Assessment & Plan: -A1c -SSI moderate dose for now - may need adjustment with steroids -ADA diet 04/29: -Increased to HD SSI VTE: Lovenox PPI: protonix Dispo: 1-2 days Code(s): J96.01 - ACUTE RESPIRATORY FAILURE WITH HYPOXIA (2) Pneumonia Current Visit: Yes Status: Acute Code(s): J18.9 - PNEUMONIA, UNSPECIFIED ORGANISM (3) Influenza A Current Visit: Yes Status: Acute Code(s): J10.1 - FLU DUE TO OTH IDENT INFLUENZA VIRUS W OTH RESP MANIFEST (4) Hypomagnesemia Current Visit: Yes Status: Acute Code(s): E83.42 - HYPOMAGNESEMIA (5) HTN (hypertension) Current Visit: Yes Status: Acute Code(s): I10 - ESSENTIAL (PRIMARY) HYPERTENSION (6) Type 2 diabetes mellitus Current Visit: Yes Status: Acute
[2024-04-29 05:43] LABS: Absolute Neutrophil Ct (ANC) 11.52 x10^3/uL (1.78-5.38); BASOPHIL % 0.2 % (0.2-1.2); Basophil (Absolute #) 0.03 x10^3/uL (0.01-0.08); Eosinophil (Absolute #) 0 x10^3/uL (0.04-0.54); Hematocrit 35.2 % (40.1-51.0); Hemoglobin 11.7 g/dL (13.7-17.5); IMMATURE GRAN % 0.8 % (0.001-0.429); Lymphocyte (Absolute #) 0.75 x10^3/uL (1.32-3.57); Lymphocytes % 5.9 % (21.8-53.1); Mean Cell Volume 89.1 fL (79.0-92.2); Mean Corpuscular Hemoglobin 29.6 pg (25.7-32.2); Mean Corpuscular Hgb Concent. 33.2 g/dL (32.3-36.5); Mean Platelet Volume 9.2 fL (9.4-12.4); Monocyte (Absolute #) 0.33 x10^3/uL (0.30-0.82); Monocytes % 2.6 % (5.3-12.2); Neutrophil % 90.5 % (34.0-67.9); Platelet Count 310 x10^3/uL (163-337); Red Blood Count 3.95 x10^6/uL (4.63-6.08); Red Cell Distribution Width 13.5 % (11.6-14.4); White Blood Count 12.7 x10^3/uL (4.23-9.07)
[2024-04-29 05:58] LABS: ALBUMIN 3.6 g/dL (3.5-5.0); ANION GAP 14.8 MEQ/L (5-15); BILIRUBIN,TOTAL 0.5 mg/dL (0.2-1.3); Calcium 8.8 mg/dL (8.4-10.2); Creatinine 1 0.87 mg/dL (0.66-1.25); EST GLOMERULAR FILTRATION RATE 98.8 ML/MIN; Potassium 4.4 mmol/L (3.5-5.1); Total Protein 7.1 g/dL (6.3-8.2)
[2024-04-29] MEDS: Levofloxacin 250MG Tablet PO SCH (09:04)
[2024-04-29] MEDS: Levofloxacin 500 MG Tablet PO SCH (09:05)
[2024-04-30 05:14] LABS: Absolute Neutrophil Ct (ANC) 9.48 x10^3/uL (1.78-5.38); BASOPHIL % 0.2 % (0.2-1.2); Basophil (Absolute #) 0.02 x10^3/uL (0.01-0.08); Eosinophil (Absolute #) 0 x10^3/uL (0.04-0.54); Hematocrit 33.3 % (40.1-51.0); Hemoglobin 11.1 g/dL (13.7-17.5); IMMATURE GRAN % 0.9 % (0.001-0.429); Lymphocyte (Absolute #) 0.54 x10^3/uL (1.32-3.57); Lymphocytes % 5.1 % (21.8-53.1); Mean Cell Volume 88.8 fL (79.0-92.2); Mean Corpuscular Hemoglobin 29.6 pg (25.7-32.2); Mean Corpuscular Hgb Concent. 33.3 g/dL (32.3-36.5); Mean Platelet Volume 9.1 fL (9.4-12.4); Monocyte (Absolute #) 0.39 x10^3/uL (0.30-0.82); Monocytes % 3.7 % (5.3-12.2); Neutrophil % 90.1 % (34.0-67.9); Platelet Count 298 x10^3/uL (163-337); Red Blood Count 3.75 x10^6/uL (4.63-6.08); Red Cell Distribution Width 13.7 % (11.6-14.4); White Blood Count 10.5 x10^3/uL (4.23-9.07)
[2024-04-30 05:28] LABS: ALBUMIN 3.3 g/dL (3.5-5.0); ANION GAP 11.9 MEQ/L (5-15); BILIRUBIN,TOTAL 0.4 mg/dL (0.2-1.3); Calcium 8.5 mg/dL (8.4-10.2); Creatinine 1 0.89 mg/dL (0.66-1.25); EST GLOMERULAR FILTRATION RATE 98.1 ML/MIN; Potassium 4.4 mmol/L (3.5-5.1); Total Protein 6.5 g/dL (6.3-8.2)
[2024-04-30 06:46] LABS: Slide Review 1 YES
[2024-04-30] MEDS ORDERED: HUMALOG SQ SCH (08:00)
[2024-04-30] MEDS: DELTASONE 20 MG PO SCH (09:02)
--- NOTE | 2024-04-30 11:30 | PCM.DS ---
Discharge Summary Date of Admission: 04/28/24 08:43 Date of Discharge: 04/30/24 Admitting Physician: KONRAD MONTEMAYOR MD Consults: Consults on Case 04/29/24 13:36 Case Management SDNM DC Needs Assessment ROUTINE Primary Care Provider: RYAN BNAKS Allergies Allergies NSAIDS (Non-Steroidal Anti-Inflamma Allergy (Severe, Verified 04/28/24 09:00) acetaminophen [From Vicodin] Allergy (Intermediate, Verified 04/28/24 09:00) Penicillins Allergy (Unknown, Verified 04/28/24 09:00) Hospital Summary - Hospital Course Hospital Course: is a 58 year old male with a pmhx of DMII and hypertension who presented to ED 04/28/24 with complaints of progressive shortness of breath, fever, and productive cough (green sputum). Patient reports he was diagnosed with FluA around the first week of April and was out of the window for Tamiflu. He has been treating symptoms at home and felt like he was getting better but over the past few days he has been having fevers/chills with TMax 101.8 and progressive shortness of breath and wheezing. This morning he was unable to ambulate without severe dyspnea which prompted him to come to ED. Denies abdominal pain, GONZALES, dizziness, N/V/D. Spouse has also been diagnosed with FluA. Upon arrival to ED, patient hypoxic, tachycardic and tachypneic. EKG sinus tach with no acute ischemia. Lab findings remarkable for Gap acidosis and hypomagnesemia. Respiratory panel negative for flu/covid/rsv. CXR demonstrates left mid to lower lung interstitial alveolar opacities without consolidation/large effusion. Patient placed on 2L oxygen and provided levaquin, solumedrol, duonebs, and magnesium replacement in ED. Admit patient for acute respiratory failure secondary to fluA/pneumonia. Plan for ceftriaxone/azith, solumedrol, nebs, supportive care. Dyspnea and cough have improved. Patient now on RA. Will discharge home on Levaquin and duonebs. Advised patient to monitor blood glucose levels closely. Will send out glucometer as pt states he no longer has one. He does have his diabetic medications and does not need refills. Will r efill his inhaler as requested. He is advised follow up with his pcp next week. Discharge Note New Diagnosis: FLuA/Pneumonia New Medications: Levaquin/duonebs -glucometer Follow Up: PCP I spent 35 minutes [id number] with the patient on the day of discharge perform ing discharge exam, discussing hospital stay and discharge instructions with patient and caregivers, preparation of discharge records, prescriptions & referral forms and addressing any questions/concerns the patient had as documented above. - Vitals & Intake/Output Vital Signs: Vital Signs Temperature 97.3 F 04/30/24 08:00 Pulse Rate 85 04/30/24 08:00 Respiratory Rate 20 04/30/24 08:00 Blood Pressure 115/54 04/30/24 08:00 O2 Sat by Pulse Oximetry 91 L 04/30/24 08:00 Intake & Output: Intake & Output 04/27/24 04/28/24 04/29/24 04/30/24 11:59 11:59 11:59 11:59 Intake Total 360 1250 1840 Output Total 2850 1400 Balance 360 -1600 440 Weight 84.8 kg 85.2 kg 85.2 kg - Lab Result Diagrams: 04/30/24 04:30 04/30/24 04:30 Lab Results-Last 24 Hrs: Lab Results-Last 24 Hours 04/29/24 04/29/24 04/29/24 Range/Units 11:35 16:40 20:58 WBC (4.23-9.07) x10^3/uL RBC (4.63-6.08) x10^6/uL Hgb (13.7-17.5) g/dL Hct (40.1-51.0) % MCV (79.0-92.2) fL MCH (25.7-32.2) pg MCHC (32.3-36.5) g/dL RDW (11.6-14.4) % Plt Count (163-337) x10^3/uL MPV (9.4-12.4) fL Gran % (34.0-67.9) % Immature Gran % (Auto) (0.001-0.429) % Nucleat RBC Rel Count (0.00-0.2) % Eos # (Auto) (0.04-0.54) x10^3/uL Immature Gran # (Auto) (0.001-0.031) x10^3u/L Absolute Lymphs (auto) (1.32-3.57) x10^3/uL Absolute Monos (auto) (0.30-0.82) x10^3/uL Absolute Nucleated RBC (0.00-0.012) x10^3u/L Lymphocytes % (21.8-53.1) % Monocytes % (5.3-12.2) % Eosinophils % (0.8-7.0) % Basophils % (0.2-1.2) % Absolute Granulocytes (1.78-5.38) x10^3/uL Basophils # (0.01-0.08) x10^3/uL Sodium (135-145) mmol/L Potassium (3.5-5.1) mmol/L Chloride (98-107) mmol/L Carbon Dioxide (22-30) mmol/L Anion Gap (5-15) MEQ/L BUN (9-20) mg/dL Creatinine (0.66-1.25) mg/dL Estimated GFR ML/MIN Glucose (74-106) mg/dL POC Glucometer 253 H 273 H 193 H (74 to 106) mg/dL Calcium (8.4-10.2) mg/dL Total Bilirubin (0.2-1.3) mg/dL AST (17-59) U/L ALT (0-50) U/L Alkaline Phosphatase (38-126) U/L Serum Total Protein (6.3-8.2) g/dL Albumin (3.5-5.0) g/dL Slides for Path Review 04/30/24 04/30/24 04/30/24 Range/Units 04:30 04:30 07:31 WBC 10.5 H (4.23-9.07) x10^3/uL RBC 3.75 L (4.63-6.08) x10^6/uL Hgb 11.1 L (13.7-17.5) g/dL Hct 33.3 L (40.1-51.0) % MCV 88.8 (79.0-92.2) fL MCH 29.6 (25.7-32.2) pg MCHC 33.3 (32.3-36.5) g/dL RDW 13.7 (11.6-14.4) % Plt Count 298 (163-337) x10^3/uL MPV 9.1 L (9.4-12.4) fL Gran % 90.1 H (34.0-67.9) % Immature Gran % (Auto) 0.9 H (0.001-0.429) % Nucleat RBC Rel Count 0.0 (0.00-0.2) % Eos # (Auto) 0 L (0.04-0.54) x10^3/uL Immature Gran # (Auto) 0.10 H (0.001-0.031) x10^3u/L Absolute Lymphs (auto) 0.54 L (1.32-3.57) x10^3/uL Absolute Monos (auto) 0.39 (0.30-0.82) x10^3/uL Absolute Nucleated RBC 0.00 (0.00-0.012) x10^3u/L Lymphocytes % 5.1 L (21.8-53.1) % Monocytes % 3.7 L (5.3-12.2) % Eosinophils % 0.0 L (0.8-7.0) % Basophils % 0.2 (0.2-1.2) % Absolute Granulocytes 9.48 H (1.78-5.38) x10^3/uL Basophils # 0.02 (0.01-0.08) x10^3/uL Sodium 131 L (135-145) mmol/L Potassium 4.4 (3.5-5.1) mmol/L Chloride 95 L (98-107) mmol/L Carbon Dioxide 28 (22-30) mmol/L Anion Gap 11.9 (5-15) MEQ/L BUN 18 (9-20) mg/dL Creatinine 0.89 (0.66-1.25) mg/dL Estimated GFR 98.1 ML/MIN Glucose 285 H (74-106) mg/dL POC Glucometer 291 H (74 to 106) mg/dL Calcium 8.5 (8.4-10.2) mg/dL Total Bilirubin 0.40 (0.2-1.3) mg/dL AST 55 (17-59) U/L ALT 61 H (0-50) U/L Alkaline Phosphatase 99 (38-126) U/L Serum Total Protein 6.5 (6.3-8.2) g/dL Albumin 3.3 L (3.5-5.0) g/dL Slides for Path Review YES 04/30/24 Range/Units 11:03 WBC (4.23-9.07) x10^3/uL RBC (4.63-6.08) x10^6/uL Hgb (13.7-17.5) g/dL Hct (40.1-51.0) % MCV (79.0-92.2) fL MCH (25.7-32.2) pg MCHC (32.3-36.5) g/dL RDW (11.6-14.4) % Plt Count (163-337) x10^3/uL MPV (9.4-12.4) fL Gran % (34.0-67.9) % Immature Gran % (Auto) (0.001-0.429) % Nucleat RBC Rel Count (0.00-0.2) % Eos # (Auto) (0.04-0.54) x10^3/uL Immature Gran # (Auto) (0.001-0.031) x10^3u/L Absolute Lymphs (auto) (1.32-3.57) x10^3/uL Absolute Monos (auto) (0.30-0.82) x10^3/uL Absolute Nucleated RBC (0.00-0.012) x10^3u/L Lymphocytes % (21.8-53.1) % Monocytes % (5.3-12.2) % Eosinophils % (0.8-7.0) % Basophils % (0.2-1.2) % Absolute Granulocytes (1.78-5.38) x10^3/uL Basophils # (0.01-0.08) x10^3/uL Sodium (135-145) mmol/L Potassium (3.5-5.1) mmol/L Chloride (98-107) mmol/L Carbon Dioxide (22-30) mmol/L Anion Gap (5-15) MEQ/L BUN (9-20) mg/dL Creatinine (0.66-1.25) mg/dL Estimated GFR ML/MIN Glucose (74-106) mg/dL POC Glucometer 264 H (74 to 106) mg/dL Calcium (8.4-10.2) mg/dL Total Bilirubin (0.2-1.3) mg/dL AST (17-59) U/L ALT (0-50) U/L Alkaline Phosphatase (38-126) U/L Serum Total Protein (6.3-8.2) g/dL Albumin (3.5-5.0) g/dL Slides for Path Review Micro Results-Entire Visit: Microbiology 04/28/24 06:40 Blood Culture - Preliminary Blood 04/28/24 06:40 Blood Culture - Preliminary Blood Accuchecks Date 04/30/24 Date 04/29/24 Date 04/29/24 Time 11:46 Time 11:46 - Procedures and Test Procedures and Tests throughout Hospitalization: Therapy Orders & Screens 04/28/24 05:33 Respiratory Therapy Assessment DAILY Comment: 04/28/24 09:10 Incentive Spirometry UD Comment: Diagnosis: FluA/pneuomonia Respiratory Therapy Consult ONCE Comment: Reason For Exam: Diagnosis: FluA/pneuomonia 04/28/24 09:28 Respiratory Therapy Assessment DAILY Comment: Diagnosis: FluA/pneuomonia 04/29/24 12:53 Oxygen Nasal Cannula 1 lpm Comment: Diagnosis: FluA/pneuomonia Discharge Exam General Appearance: no apparent distress Neurologic Exam: alert, oriented x 3, cooperative Eye Exam: PERRL Ears, Nose, Throat Exam: normal ENT inspection Neck Exam: normal inspection Respiratory Exam: crackles/rales Cardiovascular Exam: regular rate/rhythm, normal heart sounds Gastrointestinal/Abdomen Exam: soft, normal bowel sounds Male Genitalia Exam: deferred Rectal Exam: deferred Back Exam: normal inspection Extremity Exam: normal inspection Skin Exam: normal color Final Diagnosis/Problem List - Final Discharge Diagnosis/Problem (1) Acute respiratory failure with hypoxia Current Visit: Yes Status: Resolved Code(s): J96.01 - ACUTE RESPIRATORY FAILURE WITH HYPOXIA (2) Pneumonia Current Visit: Yes Status: Acute Code(s): J18.9 - PNEUMONIA, UNSPECIFIED ORGANISM (3) Influenza A Current Visit: Yes Status: Acute Code(s): J10.1 - FLU DUE TO OTH IDENT INFLUENZA VIRUS W OTH RESP MANIFEST (4) Hypomagnesemia Current Visit: Yes Status: Resolved Code(s): E83.42 - HYPOMAGNESEMIA (5) HTN (hypertension) Current Visit: Yes Status: Chronic Code(s): I10 - ESSENTIAL (PRIMARY) HYPERTENSION (6) Type 2 diabetes mellitus Current Visit: Yes Status: Chronic - Discharge Discharge Date: 04/30/24 Disposition: Home, Self-Care Condition: Stable Prescriptions: New Blood-Glucose Meter [Accu-Chek Guide Me Glucose Mtr] 1 each UD #1 misc Blood Sugar Diagnostic [Accu-Chek Guide Test Strip] 1 each MC DAILY #50 strip Lancets [Accu-Chek Softclix] 1 each MC DAILY #50 misc Albuterol/Ipratropium 3ml Neb* [DUONEB 0.5-3 MG/3 ml Neb] 3 ml IH Q6HPRN PRN 30 Days #120 amp PRN Reason: Shortness Of Breath/Wheezing levoFLOXacin [Levofloxacin] 750 mg PO DAILY 5 Days #5 tablet Albuterol 8 gm Mdi Hfa [Ventolin Hfa MDI] 2 puff IH Q6HPRN PRN 30 Days #1 inh PRN Reason: Shortness Of Breath/Wheezing Continue AMITRIPTYLINE HCL 50 mg Tab [AMITRIPTYLINE HCL 50 mg Tablet] 100 mg PO HS Tizanidine HCl 4 mg PO HS Rosuvastatin Calcium 5 mg PO HS Pioglitazone HCl 45 mg PO DAILY Metoprolol Succinate 100 mg [Toprol Xl 100 MG] 100 mg PO DAILY HydrALAzine HCL 25 MG TAB [Apresoline 25 MG TABLET] 25 mg PO TID Glipizide [Glipizide ER] 5 mg PO BID Hydrocodone/Acetaminophen [Hydrocodone-Acetamin 10-325 mg] 10 mg PO QID PRN PRN Reason: Pain Additional Instructions: TEST YOUR BLOOD SUGAR DAILY IN THE AM, KEEP A LOG TO TAKE TO YOUR FOLLOW UP APT. ORDER FOR GLUCOMETER, TEST STRIPS, AND LANCETS SENT INTO [facility] Follow up with: RYAN BANKS [Primary Care Provider] -
[2024-04-30 12:04] VITALS: BP 136/62; RESP 18; TEMP 97.1
[2024-04-30 15:46] VITALS: PULSE 75; O2SAT 95
== END 2024-04-30 15:30 | disposition home or self-care (01) ==
LOC: ED 05:12 → MED SURG 08:43
PROVIDERS: ADMIT Internal Medicine; ATTEND Internal Medicine
DX: J96.01 Acute respiratory failure with hypoxia (principal); J18.9 Pneumonia, unspecified organism; J10.1 Influenza due to other identified influenza virus with other respiratory manifestations; E83.42 Hypomagnesemia; I10 Essential (primary) hypertension; E11.9 Type 2 diabetes mellitus without complications; E78.5 Hyperlipidemia, unspecified; Z79.899 Other long term (current) drug therapy
CPT/HCPCS: 0241U; 36415; 71045; 80053; 82947; 83036; 83605; 83735; 83880; 84484; 85025; 87040; 93005; 93041; 93268; 94640; 94760; 94762; 96374; 99285; G0378; Q3014; 99284; J1817; J1956; J2919; J3475; A9270-GY